=== PATIENT | female | born 1950 | race Caucasian/White ===

== ENCOUNTER 2025-04-17 08:45 | Outpatient (CLI) | payer MEDICARE, OTHER | END 2025-04-17 08:46 | disposition home or self-care (01) | LOC: PET 08:45 | PROVIDERS: ATTEND Internal Medicine | DX: C85.89 Other specified types of non-Hodgkin lymphoma, extranodal and solid organ sites (principal); I26.99 Other pulmonary embolism without acute cor pulmonale; R59.1 Generalized enlarged lymph nodes; I82.91 Chronic embolism and thrombosis of unspecified vein; K86.2 Cyst of pancreas | CPT/HCPCS: 78815; A9552 ==